=== PATIENT | female | born 1965 | race Caucasian/White ===

== ENCOUNTER 2018-12-11 14:37 | Emergency (ER) | payer OTHER ==
[2018-12-11 15:25] VITALS: BP 138/82
--- NOTE | 2018-12-11 16:02 | UC ---
Lower Extremity/Ankle HPI - HPI Summary HPI Summary: 53 yo female presents with sudden onset of right foot pain. She tells me that [place] the [place] and felt a sharp pain in her right foot at the base of 5th MT. She sat down and thought the pain would go away, but every time she takes a step she has pain. She has not taken anything OTC for her discomfort. Came directly to . - History of Current Complaint Chief Complaint: UCLowerExtremity Stated Complaint: FOOT INJURY Time Seen by Provider: 12/11/18 16:01 Hx Obtained From: Patient Onset/Duration: Sudden Onset Severity Initially: Moderate Severity Currently: Moderate Pain Intensity: 6 Pain Scale Used: 0-10 Numeric - Allergies/Home Medications Allergies/Adverse Reactions: Allergies Allergy/AdvReac Type Severity Reaction Status Date / Time cyclobenzaprine Allergy Rash And Verified 12/11/18 15:25 [From Flexeril] Itching Home Medications: Home Medications NK [No Home Medications Reported] 12/11/18 [History Confirmed 12/11/18] PMH/Surg Hx/FS Hx/Imm Hx - Additional Past Medical History Additional PMH: None - Surgical History Surgical History: Yes Surgery Procedure, Year, and Place: hysterectomy, tonsils, dental surgery, csection, gall bladder, - Family History Known Family History: Positive: None - Social History Occupation: Employed Full-time Lives: With Family Alcohol Use: Rare Substance Use Type: None Smoking Status (MU): Never Smoked Tobacco Review of Systems All Other Systems Reviewed And Are Negative: Yes Constitutional: Positive: Negative Skin: Positive: Negative Respiratory: Positive: Negative Cardiovascular: Positive: Negative Neurovascular: Positive: Negative Musculoskeletal: Positive: Other: - Right foot pain Neurological: Positive: Negative Psychological: Positive: Negative Physical Exam - Summary Physical Exam Summary: GENERAL: NAD. WDWN. No pain distress. SKIN: No rashes, sores, lesions, or open wounds. CHEST: No accessory muscle use. Breathing comfortably and in no distress. CV: Pulses intact PT and DP. Cap refill <2seconds MSK: RIGHT FOOT: TTP at 5th MT. FROM, but pain worse with dorsiflexion and plantar flexion. No edema or obvious bony deformities. Ankle NTTP and FROM. NEURO: Alert. Sensations intact and symmetric B/L LEs PSYCH: Age appropriate behavior. Triage Information Reviewed: Yes Vital Signs: Initial Vital Signs Temp 97.5 F 12/11/18 15:20 Pulse 72 12/11/18 15:20 Resp 18 12/11/18 15:20 BP 138/82 12/11/18 15:20 Pulse Ox 100 12/11/18 15:20 Vital Signs Reviewed: Yes Lower Extremity Course/Dx - Course Course Of Treatment: XR: IMPRESSION: NO EVIDENCE FOR FRACTURE. Suspect foot strain/sprain. Advised to RICE and take ibuprofen. She was placed in a CAM boot for added comfort. If symptoms do not improve - f/u with Ortho - Differential Dx/Diagnosis Provider Diagnosis: Right foot sprain Discharge - Sign-Out/Discharge Documenting (check all that apply): Patient Departure All imaging exams completed and their final reports reviewed: Yes - Discharge Plan Condition: Stable Disposition: HOME Patient Education Materials: Foot Sprain (ED) Referrals: No Primary Care Phys,NOPCP [Primary Care Provider] - Michael Brown MD [Medical Doctor] - If Needed Additional Instructions: If you develop a fever, shortness of breath, chest pain, new or worsening symptoms - please call your PCP or go to the ED. Your blood pressure was mildly elevated at todays visit. Please see your primary provider within 4 weeks for recheck and re-evaluation. 1) Rest, Ice, and elevate your foot as much as possible 2) Use the walking boot as needed for pain relief and comfort 3) If your symptoms do not improve - please call Orthopedics at the number below to schedule an appointment - Billing Disposition and Condition Condition: STABLE Disposition: Home
[2018-12-11] MEDS ORDERED: Ibuprofen TAB* 400 MG PO ONE (16:04)
== END 2018-12-11 16:43 | disposition home or self-care (01) ==
LOC: UCEAST 14:37
DX: S93.601A Unspecified sprain of right foot, initial encounter (principal); X58.XXXA Exposure to other specified factors, initial encounter; Y93.01 Activity, walking, marching and hiking; Y92.59 Other trade areas as the place of occurrence of the external cause
CPT/HCPCS: 99201; A9270-GY; G0463